=== PATIENT | male | born 1980 | race Caucasian/White ===

== ENCOUNTER 2024-10-12 18:50 | Emergency (ER) | payer OTHER ==
[~2024-10-12] VITALS: Ht 167.6 cm; Wt 81.8 kg
[2024-10-12 18:58] VITALS: TEMP 98
[2024-10-12] MEDS: PROPARACAINE HCL 0.5% 15 ML OPHTHALMIC SOLUTION OD ONE (19:38)
[2024-10-12] MEDS: ACETAMINOPHEN 500 MG TABLET PO ONE (19:38)
[2024-10-12] MEDS: FLUORESCEIN SODIUM 1 MG STRIP OD ONE (19:48)
[2024-10-12] MEDS ORDERED: OFLO5DRO49 OD (20:10)
[2024-10-12 20:30] VITALS: BP 134/70; PULSE 73; RESP 18; O2SAT 99
[2024-10-12] MEDS: OFLOXACIN 0.3% 5 ML OPHTHALMIC SOLUTION OD ONE (20:49)
== END 2024-10-12 22:14 | disposition home or self-care (01) ==
LOC: EMS 18:52
DX: S05.01XA Injury of conjunctiva and corneal abrasion without foreign body, right eye, initial encounter (principal); X58.XXXA Exposure to other specified factors, initial encounter; Y93.89 Activity, other specified; Y92.89 Other specified places as the place of occurrence of the external cause; Y99.8 Other external cause status
CPT/HCPCS: 99284; J9035; Z7502; Z7610